=== PATIENT | male | born 1940 | race Caucasian/White ===

== ENCOUNTER → 2017-03-18 | Emergency (ER) | payer OTHER ==
[~2017-03-18] VITALS: Ht 165.1 cm; Wt 63.5 kg
[~2017-03-18] MED LIST: FORTAMET1000 MG; GLIPIZIDE5 MG; JANUVIA25 MG; LISINOPRIL2.5 MG; TOLTERODINE TART4 MG
== END | disposition home or self-care (01) ==
LOC: ER 13:35
DX: L02.416 Cutaneous abscess of left lower limb (principal); L03.116 Cellulitis of left lower limb; E13.649 Other specified diabetes mellitus with hypoglycemia without coma

== ENCOUNTER → 2018-03-17 | Emergency (ER) | payer OTHER ==
[~2018-03-17] VITALS: Ht 165.1 cm; Wt 67.1 kg
[~2018-03-17] MED LIST changes: +CASODEX50 MG; +COMBIGAN EYE DRO5 ML
== END | disposition home or self-care (01) ==
LOC: ER 09:32
DX: H57.89 Other specified disorders of eye and adnexa (principal)

== ENCOUNTER 2020-02-01 14:27 | Outpatient (CLI) | payer OTHER | END 2020-02-01 15:30 | disposition home or self-care (01) | LOC: OFIC 805 14:27 | PROVIDERS: ATTEND Otolaryngology Otology & Neurotology | DX: R04.0 Epistaxis (principal); H90.3 Sensorineural hearing loss, bilateral ==

== ENCOUNTER 2020-04-30 11:36 | Outpatient (CLI) | payer OTHER | END 2020-04-30 11:57 | disposition home or self-care (01) | LOC: OFIC 805 11:36 | PROVIDERS: ATTEND Otolaryngology Otology & Neurotology | DX: H90.A32 Mixed conductive and sensorineural hearing loss, unilateral, left ear with restricted hearing on the contralateral side (principal); R04.0 Epistaxis ==

== ENCOUNTER 2020-05-11 14:10 | Outpatient (CLI) | payer OTHER | END 2020-05-11 15:19 | disposition home or self-care (01) | LOC: OFIC 805 14:10 | PROVIDERS: ATTEND Otolaryngology Otology & Neurotology | DX: H90.A32 Mixed conductive and sensorineural hearing loss, unilateral, left ear with restricted hearing on the contralateral side (principal); H74.312 Ankylosis of ear ossicles, left ear ==

== ENCOUNTER 2020-05-27 09:18 | Day surgery (SDC) | payer OTHER ==
[~2020-05-27 09:18] MED LIST changes: +CALCIUM PO; +CASODEX50 MG PO; +CRESTOR20 MG PO; +LUPRON; +OMEGA 3-6-9 CO400 MG PO; +VITAMIN B125000 MCG PO; +VITAMIN D PO; +[UNRECOGNIZED DRUG - OTHER]
[2020-05-27] MEDS ORDERED: CILOXAN5 ML OTIC (16:21)
[2020-05-27] MEDS ORDERED: ZOFRAN8 MG PO (16:22)
== END 2020-05-27 18:40 | disposition home or self-care (01) ==
LOC: CIR.AMB 09:18
PROVIDERS: ATTEND Otolaryngology Otology & Neurotology
DX: H90.A32 Mixed conductive and sensorineural hearing loss, unilateral, left ear with restricted hearing on the contralateral side (principal); H90.A12 Conductive hearing loss, unilateral, left ear with restricted hearing on the contralateral side; H74.312 Ankylosis of ear ossicles, left ear; H73.812 Atrophic flaccid tympanic membrane, left ear; Z20.822 Contact with and (suspected) exposure to COVID-19

== ENCOUNTER 2020-06-07 14:06 | Outpatient (CLI) | payer OTHER ==
[~2020-06-07 14:06] MED LIST changes: +CILOXAN5 ML OTIC; +ZOFRAN8 MG PO
== END 2020-06-07 16:35 | disposition home or self-care (01) ==
LOC: OFIC 805 14:06
PROVIDERS: ATTEND Otolaryngology Otology & Neurotology
DX: H60.8X2 Other otitis externa, left ear (principal); H74.312 Ankylosis of ear ossicles, left ear; H90.A32 Mixed conductive and sensorineural hearing loss, unilateral, left ear with restricted hearing on the contralateral side

== ENCOUNTER 2020-07-12 13:19 | Outpatient (CLI) | payer OTHER | END 2020-07-12 13:53 | disposition home or self-care (01) | LOC: OFIC 805 13:19 | PROVIDERS: ATTEND Otolaryngology Otology & Neurotology | DX: H74.312 Ankylosis of ear ossicles, left ear (principal); H90.A32 Mixed conductive and sensorineural hearing loss, unilateral, left ear with restricted hearing on the contralateral side ==

== ENCOUNTER 2021-09-27 18:32 | Emergency (ER) | payer OTHER ==
[~2021-09-27] VITALS: Ht 165.1 cm; Wt 65.8 kg
[2021-09-27] MEDS ORDERED: PROLIA60 MG/1 ML (18:53)
[2021-09-27] MEDS ORDERED: LUPRON DEPOT3.75 M1 (18:54)
== END 2021-09-27 19:50 | disposition left against medical advice (07) ==
LOC: ER 18:32
DX: U07.1 COVID-19 (principal); E78.00 Pure hypercholesterolemia, unspecified; I10 Essential (primary) hypertension